=== PATIENT | female | born 1950 | race Caucasian/White ===

== ENCOUNTER → 2017-05-08 | Outpatient (CLI) | payer OTHER, BC ==
[~2017-05-08] MED LIST: ADULT LOW DOSE81 M1 PO; ALBUTEROL0.63 MG/3 IH; ALLOPURINOL100 MG PO; AMBIEN10 M1 GT; BENADRYL25 MG PO; FUROSEMIDE20 MG PO; GLUCOSAMINE CH1 EACH PO; LEXAPRO20 MG PO; NEURONTIN300 MG PO; OMEPRAZOLE20 M2 PO; PROAIR HFA8.5 GM IH; SYMBICORT60 INHALA1 IH; SYNTHROID125 MCG PO; VITAMIN D31000 UNIT PO; ZYRTEC10 M3 PO
== END | disposition home or self-care (01) ==
LOC: NUC 10:20
DX: E21.2 Other hyperparathyroidism (principal)
CPT/HCPCS: 78072; A9500

== ENCOUNTER 2017-08-25 12:54 | Observation (INO) | payer OTHER, BC ==
[~2017-08-25] VITALS: Ht 165.1 cm; Wt 102.8 kg
[2017-08-25 13:35] LABS: HEMOGLOBIN 13.8 G/DL (11.9-15.5); MCH 31.9 PG (29.0-34.0); MCHC 33.7 G/DL (30.0-36.0); MCV 94.9 FL (83-99); PLATELET COUNT 277 K/uL (156-360); RBC DIS.WIDTH-CV 13.1 % (11.8-14.6); RBC DIS.WIDTH-SD 45.6 % (39-53); RED BLOOD COUNT 4.32 M/uL (3.80-5.20); WHITE BLOOD COUNT 7.4 K/uL (4.1-10.2)
[2017-08-25 13:57] LABS: TROP-I INTERPRETATION NEGATIVE; TROPONIN-I 0.01 ng/mL (0.0-0.30)
[2017-08-25 14:01] LABS: CHLORIDE 105 MEQ/L (99-109); POTASSIUM 3.9 MEQ/L (3.7-5.4); SODIUM 142 MEQ/L (136-147)
[2017-08-25 14:06] LABS: CREATININE 0.8 MG/DL (0.6-1.3); GFR ESTIMATE (CALCULATED) > 59 mL/min/; GLUCOSE 96 mg/dL (70-99); UREA NITROGEN (BUN) 13 mg/dL (9-23)
[2017-08-25 17:35] LABS: TROP-I INTERPRETATION NEGATIVE; TROPONIN-I < 0.01 ng/mL (0.0-0.30)
[2017-08-25] MEDS ORDERED: NEURONTIN300 MG PO (18:22)
[2017-08-25] MEDS ORDERED: PRILOSEC20 MG PO (18:23)
[2017-08-25] MEDS ORDERED: DETROL LA2 MG PO (18:25)
[2017-08-25 23:27] VITALS: BP 147/76
[2017-08-26 06:34] LABS: CHLORIDE 106 MEQ/L (99-109); CREATININE 0.9 MG/DL (0.6-1.3); GFR ESTIMATE (CALCULATED) > 59 mL/min/; GLUCOSE 102 mg/dL (70-99); HDL CHOLESTEROL 53 MG/DL (Desirable>=50); LDL CHOLESTEROL 100 mg/dL (Desirable<100); NON-HDL CHOLESTEROL 110 mg/dL (Desirable<160); POTASSIUM 4.4 MEQ/L (3.7-5.4); SODIUM 144 MEQ/L (136-147); TOTAL CHOLESTEROL 163 mg/dL (Desirable<200); TRIGLYCERIDES 49 MG/DL (Normal: <150); UREA NITROGEN (BUN) 13 mg/dL (9-23)
[2017-08-26 07:03] LABS: HEMOGLOBIN A1c (GLYCOHEMOGLOB) 5.6 % HGB (Below 5.7)
[2017-08-26 07:13] LABS: HEMATOCRIT 37.7 % (36.0-46.0); HEMOGLOBIN 12.5 G/DL (11.9-15.5); MCH 31.5 PG (29.0-34.0); MCHC 33.2 G/DL (30.0-36.0); PLATELET COUNT 256 K/uL (156-360); RBC DIS.WIDTH-CV 13.1 % (11.8-14.6); RBC DIS.WIDTH-SD 45.9 % (39-53); RED BLOOD COUNT 3.97 M/uL (3.80-5.20); WHITE BLOOD COUNT 8.5 K/uL (4.1-10.2)
[2017-08-26 11:05] VITALS: BP 131/62
[2017-08-26] MEDS ORDERED: ATORVASTATIN CA40 MG PO (11:56)
== END 2017-08-26 14:44 | disposition home or self-care (01) ==
LOC: EME 12:54 → 5WEST 18:56 → EDOF 18:56 → ENRESERV 19:09 → 5WEST 22:53
PROVIDERS: Emergency Medicine; Hospitalist
DX: G45.9 Transient cerebral ischemic attack, unspecified (principal); E20.9 Hypoparathyroidism, unspecified; E03.9 Hypothyroidism, unspecified; M19.90 Unspecified osteoarthritis, unspecified site; E66.9 Obesity, unspecified; Z68.37 Body mass index [BMI] 37.0-37.9, adult; E21.3 Hyperparathyroidism, unspecified; Z79.82 Long term (current) use of aspirin; Z86.73 Personal history of transient ischemic attack (TIA), and cerebral infarction without residual deficits; K21.9 Gastro-esophageal reflux disease without esophagitis
CPT/HCPCS: 70450; 70551; 71046; 80048; 80061; 83036; 84484; 85027; 85379; 93005; 93880; 94640; 94640 76; 99202; 99281; 99285; G0378; J1644